=== PATIENT | male | born 1975 | race Caucasian/White ===

== ENCOUNTER 2019-03-23 22:37 | Emergency (ER) | payer BC ==
[~2019-03-23] VITALS: Ht 175.3 cm; Wt 103.6 kg
[2019-03-24] MEDS ORDERED: DEPRESSION MED PO (00:12)
[2019-03-24] MEDS ORDERED: PRILOSEC 20MG20 MG PO (00:12)
[2019-03-24 00:18] LABS: BASO # 0.1 (0.02-0.10); EOS # 0.6 (0.04-0.40); HEMATOCRIT 47.5 % (42.0-52.0); HEMOGLOBIN 15.9 g/dL (13.5-18.0); LYMPH# 3.2 (1.50-4.00); MEAN CELL VOLUME 87 fl (78-100); MEAN CORPUSCULAR HEMOGLOBIN 29 pg (27-31); MEAN CORPUSCULAR HGB CONC 34 g/dL (33-37); MEAN PLATELET VOLUME 10.4 fl (7.4-10.4); NEU # 6.6 (1.40-6.50); PLATELET COUNT 288 K/mm3 (130-400); RED BLOOD COUNT 5.44 M/mm3 (4.20-5.60); RED CELL DISTRIBUTION WIDTH 12.7 % (11.5-14.5); WHITE BLOOD COUNT 11.5 K/mm3 (4.8-10.8)
[2019-03-24 00:19] LABS: EOS % 5.5 % (0.0-4.0)
[2019-03-24 00:28] LABS: ALBUMIN 4.1 g/dL (3.5-5.0)
[2019-03-24 00:29] LABS: POTASSIUM 3.7 mmol/L (3.5-5.1)
[2019-03-24 00:30] LABS: CALCIUM 9.6 mg/dL (8.3-10.5)
[2019-03-24 00:31] LABS: TOTAL PROTEIN 7.3 g/dL (6.4-8.3)
[2019-03-24 00:33] LABS: TOTAL BILIRUBIN 0.4 mg/dL (0.2-1.2)
[2019-03-24] MEDS ORDERED: GUAIFEN-CODEINE5 ML PO (01:19)
[2019-03-24] MEDS ORDERED: PREDNISONE20 M1 PO (01:19)
[2019-03-24] MEDS ORDERED: ZITHROMAX 250M250 MG PO (01:19)
[2019-03-24 01:50] VITALS: BP 152/99
== END 2019-03-24 01:50 | disposition home or self-care (01) ==
LOC: ED 22:37
PROVIDERS: Family Medicine
DX: J02.9 Acute pharyngitis, unspecified (principal); J45.909 Unspecified asthma, uncomplicated; K21.9 Gastro-esophageal reflux disease without esophagitis; F17.210 Nicotine dependence, cigarettes, uncomplicated
CPT/HCPCS: J0696

== ENCOUNTER → 2020-02-06 | Outpatient (CLI) | payer BC ==
[~2020-02-06] MED LIST: DEPRESSION MED PO; GUAIFEN-CODEINE5 ML PO; PREDNISONE20 M1 PO; PRILOSEC 20MG20 MG PO; ZITHROMAX 250M250 MG PO
== END ==
LOC: LAB 14:01
DX: J02.9 Acute pharyngitis, unspecified (principal); Z20.828 Contact with and (suspected) exposure to other viral communicable diseases

== ENCOUNTER → 2020-03-29 | Outpatient (CLI) | payer BC | LOC: LAB 16:16 | DX: U07.1 COVID-19 (principal) ==